=== PATIENT | female | born 1985 | race African-American/Black ===

== ENCOUNTER 2023-12-05 17:48 | Emergency (ER) | payer MEDICARE, OTHER, SELFPAY ==
--- NOTE | 2023-12-05 18:16 | ED.GENMED ---
History of Present Illness
<Yamini Beck PA-C - Last Filed: 12/05/23 23:29>
General
Chief Complaint: Psychiatric Problem
Source: patient
Exam Limitations: none
Time Seen by Provider: 12/05/23 18:09
Nursing documentation reviewed up to this point in time: agreed with
History of Present Illness
History of Present Illness:
This is a 38-year-old female presenting emergency department today for medical clearance for psychiatric treatment. Patient has a history of major depressive disorder with features, PTSD, psychogenic seizures, current malformation, asthma. She
receives psychiatric care and sees a therapist associated with [facility]. Patient does have extensive psychiatric history of multiple inpatient stays. 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 Patient went to her crisis center on her
own accord to seek treatment by her recommendation of her therapist. According to crisis workers, patient was mumbling her words upon arrival but initially she did express on her own accord that she wanted further psychiatric care. However, some
things change and then she started refusing any treatment. She then went to use the bathroom and started cutting herself with a razor blade and was brought into her ER bed for urgent medical attention. Once her wounds were addressed, she then
transferred back to crisis center. Patient is currently nonverbal, will occasionally shake her head yes or no. When asked about chest pain, shortness of breath, abdominal pain, nausea, vomiting, fevers or chills, she seemed to shake her head no.
She did shake her head yes to having a mild headache.
Past History
<Yamini Beck PA-C - Last Filed: 12/05/23 23:29>
Past History
ED Past Medical History: Asthma, GERD, Psychiatric (Posttraumatic syndrome, self mutilation, borderline personality, dissociative identity, suicide, depression) and Other (Pseudotumor cerebri)
ED Past Surgical History: Cholecystectomy, Gynecological (Ectopic with removal of tube and ovary November 2008 ), Tonsilectomy and Other (Dental surgery, gastric bypass)
Social History
Tobacco: Smoker
Alcohol: None
Drug: None
Personal: Single
Living: other (intermediate - behavioral health)
Employment: Not employed
Family History
Family History: Other (n/c); Negative Diabetes, Hypertension, Early CAD or CAD
Review of Systems
<Yamini Beck PA-C - Last Filed: 12/05/23 23:29>
Review of Systems
All Other Systems: ROS reviewed and negative except as documented in HPI and ROS
Phy Exam
<Yamini Beck PA-C - Last Filed: 12/05/23 23:29>
Physical Exam
Physical Exam:
General: Patient appears fearful and suspicious of medical staff. Patient however does not appear acutely ill and is nontoxic-appearing.
Skin: There are multiple scars on her bilateral arms. Her left forearm demonstrates scattered excoriations and various very superficial lacerations.
Head: Normocephalic, atraumatic
Eyes: Sclera non-icteric. EOMs intact. PERRLA.
Cardiac: Regular rate
Peripheral Vascular: No extremity swelling or edema
Pulm: Normal respiratory effort
Abdomen: No abdominal tenderness
Neuro: CN II-XII intact, no focal neurologic deficits.
Psychiatric: Patient is easily agitated. Patient appears disheveled, restless, unkempt. Patient will not answer questions and will only occasionally shake her head yes or no. Patient seems to be especially fearful of male providers. On first
assessment patient observed to be actively trying to harm herself, did not ever seem to attempt to harm others.
Course
<Yamini Beck PA-C - Last Filed: 12/05/23 23:29>
Orders/Labs/Results
Orders:
Orders
12/05/23 18:39
Urine Drug Abuse Screen Urgent
Date Specimen was Collected: 12/05/23
Time Specimen was Collected: 18:40
12/05/23 18:40
Test Result ONCE
12/05/23 18:42
Alcohol Urgent
Beta Hcg Serum Qualitative Screen [HCG, Serum Qualitative Screen] Urgent
Complete Blood Count/No Diff Urgent
Comprehensive Metabolic Panel Urgent
Salicylate Urgent
12/05/23 18:45
Lorazepam [Ativan] 2 mg IM NOW STA
12/05/23 18:46
Lorazepam [Ativan] 2 mg .ROUTE .STK-MED ONE
12/05/23 18:49
Restraints - Violent As Directed
Restraint Type-: Locked-4 point/4 rails
Apply From (date): 12/05/23
Apply from (time): 18:49
Remove (date): 12/05/23
Remove (time): 22:49
12/05/23 18:50
Olanzapine [Zyprexa] 10 mg IM NOW STA
12/05/23 18:51
Sterile Water [Sterile Water For Injection] 10 ml .ROUTE .STK-MED ONE
12/06/23 06:24
PSYCHIATRY CONSULT Urgent
Consulting Provider: Elham Sosa
Was physician already notified: Yes
Reason for consult: psychosis
Abnormal Lab Results
12/05/23
18:42
RBC 3.41 L 10^6/uL
(4.20-5.40)
Hgb 9.1 L g/dL
(12.0-16.0)
Hct 28.8 L %
(37.0-47.0)
MCH 26.7 L pg
(27.0-31.0)
MCHC 31.6 L g/dL
(33.0-37.0)
RDW 15.3 H %
(11.5-14.5)
Salicylates < 1.0 L mg/dl
(2.0-20.0)
12/05/23 18:42
12/05/23 18:42
Vital Signs
Initial and Last Documented VS:
Initial Vital Signs
Temp Pulse Resp BP Pulse Ox
96.9 F L 92 18 99/74 100
12/05/23 18:27 12/05/23 18:27 12/05/23 18:27 12/05/23 18:27 12/05/23 18:27
Last Documented Vital Signs
Temp Pulse Resp BP Pulse Ox
96.9 F L 92 18 99/74 100
12/05/23 18:27 12/05/23 18:27 12/05/23 18:27 12/05/23 18:27 12/05/23 18:27
<Danyel Flores, DO - Last Filed: 12/05/23 20:09>
Orders/Labs/Results
Orders:
Orders
12/05/23 18:39
Urine Drug Abuse Screen Urgent
Date Specimen was Collected: 12/05/23
Time Specimen was Collected: 18:40
12/05/23 18:40
Test Result ONCE
12/05/23 18:42
Alcohol Urgent
Beta Hcg Serum Qualitative Screen [HCG, Serum Qualitative Screen] Urgent
Complete Blood Count/No Diff Urgent
Comprehensive Metabolic Panel Urgent
Salicylate Urgent
12/05/23 18:45
Lorazepam [Ativan] 2 mg IM NOW STA
12/05/23 18:46
Lorazepam [Ativan] 2 mg .ROUTE .STK-MED ONE
12/05/23 18:49
Restraints - Violent As Directed
Restraint Type-: Locked-4 point/4 rails
Apply From (date): 12/05/23
Apply from (time): 18:49
Remove (date): 12/05/23
Remove (time): 22:49
06/21/24 18:50
Olanzapine [Zyprexa] 10 mg IM NOW STA
12/05/23 18:51
Sterile Water [Sterile Water For Injection] 10 ml .ROUTE .STK-MED ONE
12/06/23 06:24
PSYCHIATRY CONSULT Urgent
Consulting Provider: Elham Sosa
Was physician already notified: Yes
Reason for consult: psychosis
Abnormal Lab Results
12/05/23
18:42
RBC 3.41 L 10^6/uL
(4.20-5.40)
Hgb 9.1 L g/dL
(12.0-16.0)
Hct 28.8 L %
(37.0-47.0)
MCH 26.7 L pg
(27.0-31.0)
MCHC 31.6 L g/dL
(33.0-37.0)
RDW 15.3 H %
(11.5-14.5)
Salicylates < 1.0 L mg/dl
(2.0-20.0)
12/05/23 18:42
12/05/23 18:42
Vital Signs
Initial and Last Documented VS:
Initial Vital Signs
Temp Pulse Resp BP Pulse Ox
96.9 F L 92 18 99/74 100
12/05/23 18:27 12/05/23 18:27 12/05/23 18:27 12/05/23 18:27 12/05/23 18:27
Last Documented Vital Signs
Temp Pulse Resp BP Pulse Ox
96.9 F L 92 18 99/74 100
12/05/23 18:27 12/05/23 18:27 12/05/23 18:27 12/05/23 18:27 12/05/23 18:27
<Kulwinder Hawkins MD - Last Filed: 12/06/23 06:32>
Orders/Labs/Results
Orders:
Orders
12/05/23 18:39
Urine Drug Abuse Screen Urgent
Date Specimen was Collected: 12/05/23
Time Specimen was Collected: 18:40
12/05/23 18:40
Test Result ONCE
12/05/23 18:42
Alcohol Urgent
Beta Hcg Serum Qualitative Screen [HCG, Serum Qualitative Screen] Urgent
Complete Blood Count/No Diff Urgent
Comprehensive Metabolic Panel Urgent
Salicylate Urgent
12/05/23 18:45
Lorazepam [Ativan] 2 mg IM NOW STA
12/05/23 18:46
Lorazepam [Ativan] 2 mg .ROUTE .STK-MED ONE
12/05/23 18:49
Restraints - Violent As Directed
Restraint Type-: Locked-4 point/4 rails
Apply From (date): 12/05/23
Apply from (time): 18:49
Remove (date): 12/05/23
Remove (time): 22:49
12/05/23 18:50
Olanzapine [Zyprexa] 10 mg IM NOW STA
12/05/23 18:51
Sterile Water [Sterile Water For Injection] 10 ml .ROUTE .STK-MED ONE
12/06/23 06:24
PSYCHIATRY CONSULT Urgent
Consulting Provider: Elham Sosa
Was physician already notified: Yes
Reason for consult: psychosis
Abnormal Lab Results
12/05/23
18:42
RBC 3.41 L 10^6/uL
(4.20-5.40)
Hgb 9.1 L g/dL
(12.0-16.0)
Hct 28.8 L %
(37.0-47.0)
MCH 26.7 L pg
(27.0-31.0)
MCHC 31.6 L g/dL
(33.0-37.0)
RDW 15.3 H %
(11.5-14.5)
Salicylates < 1.0 L mg/dl
(2.0-20.0)
12/05/23 18:42
12/05/23 18:42
Vital Signs
Initial and Last Documented VS:
Initial Vital Signs
Temp Pulse Resp BP Pulse Ox
96.9 F L 92 18 99/74 100
12/05/23 18:27 12/05/23 18:27 12/05/23 18:27 12/05/23 18:27 12/05/23 18:27
Last Documented Vital Signs
Temp Pulse Resp BP Pulse Ox
96.9 F L 92 18 99/74 100
12/05/23 18:27 12/05/23 18:27 12/05/23 18:27 12/05/23 18:27 12/05/23 18:27
<Yamini Beck PA-C - Last Filed: 12/05/23 23:29>
MDM/Problems Addressed
Differential Diagnosis Includes:
ddx include acute psychosis, major depressive disorder with psychotic features, schizophrenia, schizophrenoform disorder
MDM/Problems Addressed:
Psychosis:
This is a 38-year-old female presenting emergency department today for medical clearance for psychiatric treatment. Patient has a history of major depressive disorder with features, PTSD, psychogenic seizures, current malformation, asthma. She
receives psychiatric care and sees a therapist associated with [facility]. Patient has extensive history of previous hospitalizations for psychiatric issues. Patient had episode here and went to evaluate crisis in her bathroom where
she cut herself with a razor blade. Her wounds were dressed, bleeding controlled, wounds not amenable to suturing or repair with glue. Telepsych eval pending. Considering patient extensive self-harm, and acute, patient will be evaluated for
potential inpatient admission. Patient does not seem to have any medical concerns at this time and her vitals are stable.
Patient is medically stable for inpatient psychiatric care.
Chronic conditions affecting care:
Psychogenic seizures, suicidal ideation, major depressive disorder with psychotic features, asthma, chiari malformation
Acute Exacerbation and/or Progression of Chronic Illness:
Psychogenic seizures, suicidal ideation, major depressive disorder with psychotic features, asthma, chiari malformation
<Yamini Beck PA-C - Last Filed: 12/05/23 23:29>
*Pulse Oximetry
Patient hypoxic: no
*Critical Care Note
Total Time (30-74mins, 75-104mins- exclusive of procedures): Not Applicable
Data Reviewed
Review of Other/Old Records Reveals: Records (Reviewed previous ER physician documentation, patient has a psychiatric history documented here, previously visited emergency department for concerns of depression, and multiple instances of self-harm
suicidal ideation)
Source: patient and records
<Yamini Beck PA-C - Last Filed: 12/05/23 23:29>
Patient Management
Escalation/DeEscalation of care consider admission/obs:
Psychiatric eval pending, patient's [facility] team petititoned, [address] Elena.
Patient is medically stable for inpatient psychiatric care.
<Yamini Beck PA-C - Last Filed: 12/05/23 23:29>
Update Note
Update Note:
My attending and I were called into the room by nursing regarding the patient who had extensive bleeding following self injury. Patient was originally seen by [facility] and came in for treatment however, she went to the bathroom and she
started cutting herself with a razor and was subsequently brought into one of our ER beds for evaluation of her wounds. Her left forearm reveals multiple superficial abrasions that are actively bleeding. Bleeding was well-controlled after thorough
irrigation with saline and resolved on its own within a few minutes. No deep lacerations requiring sutures. Wound was dressed and pressure dressing applied.
When patient was brought back to her crisis room, patient started scratching herself deeply all over her body, and would not stop. I was called and to the room by nursing he was requesting psychiatric medication urgently as patient was harming
herself extensively. Patient was subsequently given 2 mg of Ativan IM and 10 mg of Zyprexa IM. Please also request for restraints to be present as patient continues to call out herself however, patient started to become more calm and restraints
were not required.
<Kulwinder Hawkins MD - Last Filed: 12/06/23 06:32>
Update Note
Update Note:
My attending and I were called into the room by nursing regarding the patient who had extensive bleeding following self injury. Patient was originally seen by [facility] and came in for treatment however, she went to the bathroom and she
started cutting herself with a razor and was subsequently brought into one of our ER beds for evaluation of her wounds. Her left forearm reveals multiple superficial abrasions that are actively bleeding. Bleeding was well-controlled after thorough
irrigation with saline and resolved on its own within a few minutes. No deep lacerations requiring sutures. Wound was dressed and pressure dressing applied.
When patient was brought back to her crisis room, patient started scratching herself deeply all over her body, and would not stop. I was called and to the room by nursing he was requesting psychiatric medication urgently as patient was harming
herself extensively. Patient was subsequently given 2 mg of Ativan IM and 10 mg of Zyprexa IM. Please also request for restraints to be present as patient continues to call out herself however, patient started to become more calm and restraints
were not required.
12/06/23 @ 6:30 am : pt remains sedated from medications given overnight, but arousable. Pt unable to be evaluated by tele-psych due to sedation. Awaiting evaluation by psychiatry in AM.
ED Attending Note
<Yamini Beck PA-C - Last Filed: 12/05/23 23:29>
-
Portions of this chart may have been created with voice recognition software.� Occasional wrong word or��sound alike� substitutions may have occurred due to the inherent limitations of voice recognition software.
<Danyel Flores, DO - Last Filed: 12/05/23 20:09>
ED Attending Note
Patient seen and examined by attending physician: Yes
I performed the substantive portion of visit, reviewed & personally made and approve the management plan that is documented in note by myself or SY.: Yes
I performed a history and physical exam of patient and discussed management with resident, I reviewed resident's note and agree with documented findings and plan of care.: Yes
ED Attending Note:
I evaluated patient. The patient appears to be experiencing psychosis. She would initially not let me get near her and had rather bizarre behavior. At times she would stay curled up in the back corner of the room. She was given Zyprexa and
Ativan. Telepsych eval pending.
Discharge Plan
Departure
Prescriptions:
No Action
prazosin 2 MG capsule
2 mg PO HS
albuterol sulfate [Ventolin HFA] 90 MCG/PUFF HFA aerosol inhaler
2 puff inhalation R Q6 PRN (Reason: sob/wheezing)
clonazepam 1 MG tablet
1 mg PO DAILY PRN (Reason: anxiety/aggitation)
Patient Comments:
01/30/2023: last filled 01/14/23, 30 tabs for 30 days from [facility]
fluoxetine 40 mg capsule
40 mg PO DAILY
sennosides [senna] 8.6 mg tablet
8.6 mg PO BID
clonidine HCl 0.1 mg tablet
0.1 mg PO HS
benztropine 0.5 mg tablet
0.5 mg PO BID
cyproheptadine 4 mg tablet
4 mg PO HS
pantoprazole 40 mg tablet,delayed release (DR/EC)
40 mg PO BID
gabapentin 100 mg capsule
200 mg PO TID
fluticasone propionate 50 mcg/actuation spray,suspension
2 spray INTRANASAL DAILY
hydroxyzine pamoate 25 mg capsule
25 mg PO BID PRN (Reason: anxiety)
duloxetine 30 mg capsule,delayed release(DR/EC)
30 mg PO DAILY
Vraylar 4.5 mg capsule
4.5 mg PO DAILY
docusate sodium 100 MG capsule
100 mg PO DAILY
acetaminophen 325 mg Tablet
650 mg PO Q4HPRN PRN (Reason: pain) Qty: 30 0RF
ibuprofen [Motrin IB] 200 mg tablet
400 mg PO TID PRN (Reason: moderate pain) Qty: 20 0RF
Rx Instructions:
take with food only. Do not take for more than 5 days
topiramate 100 mg tablet
100 mg PO Q12H Qty: 0 0RF
Referrals:
NONE,* [Family Provider] -
Interventions
Interventions:
*Risk Screen - Suicide Last Done: 12/05/23 18:42
*General Assessment Last Done: 12/05/23 18:27
*Neglect/Abuse Screening Last Done: 12/05/23 18:42
ED- Fall Risk Assessment Last Done: 12/05/23 19:07
*ED COVID-19 Vaccine History Last Done: 12/05/23 18:27
ED-Psychological Assessment Last Done: 12/05/23 19:07
Discharge Date and Time
Print Language: SYRIAN
[2023-12-05 18:27] VITALS: BP 99/74
[2023-12-05 18:48] LABS: Hematocrit 28.8 % (37.0-47.0); Hemoglobin 9.1 g/dL (12.0-16.0); Mean Corp Hgb Conc. 31.6 g/dL (33.0-37.0); Mean Corpuscular Hgb 26.7 pg (27.0-31.0); Mean Corpuscular Volume 84.5 fL (81.0-99.0); Mean Platelet Volume 9.3 fL (7.4-10.4); Platelet Count 359 10^3/uL (130-400); Red Blood Cell Count 3.41 10^6/uL (4.20-5.40); Red Cell Dist. Width 15.3 % (11.5-14.5); White Blood Cell Count 5.9 10^3/uL (4.8-10.8)
[2023-12-05] MEDS: ZYPREXA 10 MG IM (18:54)
[2023-12-05] MEDS: ATIVAN 2 MG IM (18:54)
[2023-12-05 19:01] LABS: HCG, Serum Qualitative Screen Negative
[2023-12-05 19:05] LABS: ALT (SGPT) 18 U/L (0-35); AST (SGOT) 25 U/L (14-36); Albumin 3.7 g/dl (3.5-5.0); Alcohol None Detected; Alkaline Phosphatase 68 U/L (38-126); Blood Urea Nitrogen 9 mg/dl (7-17); Calcium 9.3 mg/dl (8.4-10.2); Carbon Dioxide 26 mmol/L (22-30); Chloride 107 mmol/L (98-107); Glucose 89 mg/dl (70-99); Potassium 4.2 mmol/L (3.5-5.1); Salicylate < 1.0 mg/dl (2.0-20.0); Sodium 138 mmol/L (135-145); Total Bilirubin 0.3 mg/dl (0.2-1.3); Total Protein 6.6 g/dl (6.3-8.2); eGFR > 60.00
[2023-12-05 19:07] VITALS: BMI 43.2
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
[2023-12-06 09:12] VITALS: BP 145/91
[2023-12-06 09:36] LABS: COVID-19 Antigen Negative (Negative)
--- NOTE | 2023-12-06 10:32 | CS.PSYCHR ---
Consult Summary - Psychiatry
-
38 yo female with extensive mental health history as noted below presents on a 302 after cutting herself with a razor blade in the crisis bathroom. She received olanzapine 10mg IM an Ativan 2mg IM for agitation yesterday. At this time she is sitting
up and eating breakfast. She is mumbling and difficult to understand. She state she has been compliant with her psych medications at home.
MSE- disheveled. poor eye contact, obese. mumbling impoverished speech, very difficult to understand. unable to assess full MSE due to this. calm at this time but high risk for recurrence of agitation.
Past psych- mental health treatment at [facility]. multiple inpatient psych admissions. diagnoses include MDD, BPD, PTSD, psychogenic seizures
Social- lives alone
PMH- obesity, asthma, GERD, pseudotumor cerebri
A/P- 38 yo female with past psych history as noted above on a 302 awaiting inpatient placement for safety, stabilization and medications management. Will give Klonopin 1mg and neurontin 200mg now (these are two of her home medications). will hold
off on others for now. continue 1:1 for safety. Crisis pursuing placement.
[2023-12-06] MEDS: NEURONTIN 200 MG PO (10:37)
[2023-12-06] MEDS: KLONOPIN 1 MG PO (10:38)
[2023-12-06] MEDS: ATIVAN 2 MG IM ×2 (12:46→14:03)
[2023-12-06] MEDS: ZYPREXA 10 MG IM (12:48)
[2023-12-06] MEDS: ATIVAN 1 MG PO (13:20)
--- NOTE | 2023-12-06 14:30 | EDRN ---
Patient to be transferred to [facility] via EMS by [facility] ETA 1230. Patient became agitated, verbally aggressive and barricaded self in bathroom. Security, production inspector and Dr. Hawkins notified. CPI techniques applied, deescalation attempts made,
emotional support and therapeutic communication provided, unsuccessful. Patient observed attempting to remove toilet seat while verbally threatening to harm staff. Patient repeatedly stating 'Bring it on'. Orders obtained to for IM ativan and
zyprexa. Patient continues with escalation, shouting, 'I'm not going to be a fucking test subject' 'If you come near me with that needle, I'm going to jab it into one of you' 'If my head gets hurt, I will carmen you all' Security called [place]
[facility] for assistance. Patient continued with further escalation and threats. Patient states 'Good bring the police, I will take their gun and shoot myself'. After police arrived patient ambulated self into room and sat on the floor.
patient refusing to sit or lay on stretcher. After police conversed with patient, patient agreeable to take PO medications. Dr. Hawkins ordered 2mg PO ativan. Patient provided 2-1mg tablets of ativan. Patient took one tablet and refused the second. "Madonna"Shruthi notified. Instructed to administer IM ativan and zyprexa as ordered. With assist of police and security, patient physically restrained and IM medication administered. Patient aggressive, swinging arms, kicking legs and spitting at staff and
police. Patient took blanket and tied around neck in attempts to strangle self. Patient observed aggressively scratching lacerations to abdomen and arms. With maximum assistance, patient assisted to EMS stretcher, restraints and mitts applied.
Patient observed thrashing body on stretcher and attempting to remove restraints. Dr. Hawkins notified, reassessed patient and ordered 2mg ativan IM. Patient left department via EMS with all belongings. Crisis department provided report to [facility].
--- NOTE | 2023-12-06 16:19 | EDRN ---
Addendum: Prior to discharge, patient broke took while bitting wrist restraints and mitts in attempts to remove them. Tooth placed in biohazard bag and given to EMS.
== END 2023-12-06 14:30 ==
LOC: EMR 17:48
PROVIDERS: Emergency Medicine; CONSULT PHYSICIAN Psychiatry & Neurology Psychiatry; EMERGENCY PHYSICIAN Emergency Medicine
DX: R51.9 Headache, unspecified (principal); J45.909 Unspecified asthma, uncomplicated; K21.9 Gastro-esophageal reflux disease without esophagitis; F60.3 Borderline personality disorder; F44.81 Dissociative identity disorder; F43.10 Post-traumatic stress disorder, unspecified; R45.851 Suicidal ideations; F32.A Depression, unspecified; F17.200 Nicotine dependence, unspecified, uncomplicated; Z82.49 Family history of ischemic heart disease and other diseases of the circulatory system; Z90.49 Acquired absence of other specified parts of digestive tract; Z90.721 Acquired absence of ovaries, unilateral; Z91.52 Personal history of nonsuicidal self-harm; Z98.84 Bariatric surgery status
CPT/HCPCS: 99283; 80053; 80179; 82077; 84703; 85027; 87811; J2358

== ENCOUNTER 2023-12-06 16:14 | Emergency (ER) | payer MEDICARE, OTHER, SELFPAY ==
[2023-12-06 17:20] VITALS: BP 136/96
--- NOTE | 2023-12-06 17:55 | ED.GENMED ---
History of Present Illness
General
Chief Complaint: Crisis Evaluation
Source: records and other (crisis)
Exam Limitations: none
Time Seen by Provider: 12/06/23 16:26
Nursing documentation reviewed up to this point in time: agreed with
History of Present Illness
History of Present Illness:
Patient was seen in Crisis and ED on 12/04. Cleared medically in ED for inpatient psychiatric care. She was accepted at [facility] but became increasing agitated and agressive during transfer. She was returned back to ED, eclectic not able taccept
due to level of aggression. She is currently being held in ED until she is successfully placed elsewhere. CUrrently she is awake and alert, in no distress. Medical clearance was completed 12/04.
Past History
Past History
ED Past Medical History: Asthma, GERD, Psychiatric (Posttraumatic syndrome, self mutilation, borderline personality, dissociative identity, suicide, depression) and Other (Pseudotumor cerebri)
ED Past Surgical History: Cholecystectomy, Gynecological (Ectopic with removal of tube and ovary November 2008 ), Tonsilectomy and Other (Dental surgery, gastric bypass)
Social History
Tobacco: Smoker
Alcohol: None
Drug: None
Personal: Single
Living: other ([facility])
Employment: Not employed
Family History
Family History: Other (n/c); Negative Diabetes, Hypertension, Early CAD or CAD
Review of Systems
Review of Systems
Allergies reviewed?: Yes
All Other Systems: ROS reviewed and negative except as documented in HPI and ROS
Constitutional: Reports no symptoms
EENT: Reports no symptoms
Respiratory: Reports no symptoms
Cardiac: Reports no symptoms
ABD/GI: Reports no symptoms
: Reports no symptoms
Musculoskeletal: Reports no symptoms
Skin: Reports no symptoms
Neurological: Reports no symptoms
Psychiatric: Reports depression, anxiety and suicidal
Phy Exam
General Physical Exam
General Presentation: well appearing and no apparent distress
General age: appears stated age
General Skin: warm and dry
General Habitus: normal
General Mental: alert
General Hydration: appears well hydrated
Musculoskeletal Exam
Musculoskeletal Exam: full ROM and neuro vasc intact
Skin Exam
Skin Exam: normal color and warm/dry
Psychiatric Exam
Psychiatric Exam: normal mood/affect
Course
Orders/Labs/Results
Orders:
Orders
12/06/23 20:00
Topiramate [Topamax] 100 mg PO BID
12/06/23 22:00
Clonidine [Catapres] 0.1 mg PO HS
Trazodone [Desyrel] 50 mg PO HS
12/06/23 22:02
Olanzapine [Zyprexa] 15 mg PO HS
12/06/23 23:29
PSYCHIATRY CONSULT Urgent
Consulting Provider: Elham Sosa
Was physician already notified: Yes
12/06/23 23:30
Crisis Consult Urgent
Reason for Consult: inpatient Psychiatric Care
12/07/23 03:21
Asenapine Sublingual [Saphris] 10 mg .ROUTE .STK-MED ONE
12/07/23 03:22
Asenapine Sublingual [Saphris] 10 mg SL NOW STA
12/07/23 08:00
Fluoxetine HCl [Prozac] 60 mg PO DAILY
12/07/23 10:28
Clonazepam [Klonopin] 1 mg PO DAILY PRN
12/07/23 11:00
Fluoxetine HCl [Prozac] 60 mg PO DAILY
Topiramate [Topamax] 100 mg PO BID
12/07/23 22:00
Clonidine [Catapres] 0.1 mg PO HS
Olanzapine [Zyprexa] 10 mg PO HS
Trazodone [Desyrel] 50 mg PO HS
Vital Signs
Initial and Last Documented VS:
Initial Vital Signs
Temp Pulse Resp BP Pulse Ox
98.3 F 94 16 136/96 100
12/06/23 17:20 12/06/23 17:20 12/06/23 17:20 12/06/23 17:20 12/06/23 17:20
Last Documented Vital Signs
Temp Pulse Resp BP Pulse Ox
98.6 F 88 19 105/71 99
12/07/23 12:00 12/07/23 12:00 12/07/23 12:00 12/07/23 12:00 12/07/23 12:00
*Critical Care Note
Total Time (30-74mins, 75-104mins- exclusive of procedures): Not Applicable
Update Note
Update Note:
Patient remains awake and alert, cooperative. Will continue to hold in crisis room. Psychiatry will evaluate in AM
ED Attending Note
-
Portions of this chart may have been created with voice recognition software.� Occasional wrong word or��sound alike� substitutions may have occurred due to the inherent limitations of voice recognition software.
Discharge Plan
Departure
Patient Disposition: Psych Facility
Patient with high blood pressure during this ER visit?: No
Discharge Problem:
Medical clearance for psychiatric admission
Prescriptions:
No Action
clonidine HCl 0.1 mg Tablet
0.1 mg PO HS
benztropine 0.5 mg Tablet
0.5 mg PO BID
trazodone 50 mg Tablet
50 mg PO HS
olanzapine 15 mg Tablet
15 mg PO HS
topiramate 100 mg tablet
100 mg PO BID
fluoxetine [Prozac] 20 mg Capsule
60 mg PO DAILY
hydroxyzine pamoate 25 mg capsule
25 mg PO BID
Vraylar 4.5 mg Capsule
4.5 mg PO DAILY
Referrals:
UNKNOWN - PT NOT,INTERVIEWE [Family Provider] -
Interventions
Interventions:
*Risk Screen - Suicide Last Done: 12/06/23 17:21
*General Assessment Last Done: 12/06/23 17:25
*Neglect/Abuse Screening Last Done: 12/06/23 17:25
ED- Fall Risk Assessment Last Done: 12/07/23 13:19
*ED COVID-19 Vaccine History Last Done: 12/06/23 17:25
*Nursing Disposition Last Done: 12/07/23 13:19
ED-Psychological Assessment Last Done: 12/07/23 12:00
Discharge Date and Time
Discharge Date/Time: 12/07/23 13:20
Print Language: COOK ISLANDER
[2023-12-06] MEDS: TOPAMAX 100 MG PO (22:08)
[2023-12-06] MEDS: DESYREL 50 MG PO (22:08)
[2023-12-06] MEDS: CATAPRES 0.100000000000000006 MG PO (22:11)
[2023-12-07] MEDS: SAPHRIS 10 MG SL (03:23)
[2023-12-07 10:08] VITALS: BP 139/78
--- NOTE | 2023-12-07 10:36 | W.PN.UPDATE ---
Update Note
Progress Note Update
Patient was transferred to [place] yesterday on a 302 but sent back to crisis secondary to concern that she had been in restraints. Yesterday patient had become very agitated and required IM Ativan/Zyprexa and physical restraint for safety. She
did sleep through the night here. Today she is calm and waiting for breakfast. She states she does not want to go to [facility] or [place]. Reviewed that she is a 302 and that crisis is pursuing placement options and that where she goes depends on
multiple factors which we cannot control. I explained that I will restart some of her home medications while she is here.
MSE- Awake, cooperating right now but easily agitated when told anything she does not want to hear. Poor eye contact. Still mumbled speech but easier to understand. Irritable mood. Labile affect.Poverty of thought. Denies active SI but has self
harmed here with cutting/scratching. Denies AVH. Poor insight. Impaired judgement.
A/P- 38 yo female with history of depression, PTSD, borderline PD. continue efforts at inpatient placement on 302. Restart the following home medications: olanzapine 10mg HS, prozac 60mg daily, trazodone 50mg HS, topamax 100mg BID, clonidine 0.1mg
HS, klonopin 1mg daily PRN anxiety. Hold cogentin and vraylar for now. Continue 1:1 for safety.
[2023-12-07] MEDS: TOPAMAX PO (10:55)
[2023-12-07] MEDS: PROZAC 60 MG PO (11:44)
[2023-12-07] MEDS: TOPAMAX 100 MG PO (11:45)
[2023-12-07 12:00] VITALS: BP 105/71
--- NOTE | 2023-12-07 13:08 | PTCARENOTE ---
Spoke to crisis. Pt is getting picked up at 1300 to be transferred to [place]. Pt is aware and is cooperating. RN in room to talk to pt. Pt states she knows she's going to [place] and will get on the stretcher without difficulty. RN gave pt
a new pair of paper scrubs to change in to. RN obtained Lunch tray from cafeteria and gave to pt to eat prior to leaving. Security brought pt belongings to room at time of departure. Pt got on stretcher without trouble. Pt remains calm and
cooperative. Pt left with Acute Care on stretcher without any restraints in place.
== END 2023-12-07 13:20 ==
LOC: EMR 16:14
PROVIDERS: CONSULT PHYSICIAN Psychiatry & Neurology Psychiatry; EMERGENCY PHYSICIAN Emergency Medicine
DX: Z02.79 Encounter for issue of other medical certificate (principal); R45.1 Restlessness and agitation; J45.909 Unspecified asthma, uncomplicated; K21.9 Gastro-esophageal reflux disease without esophagitis; G93.2 Benign intracranial hypertension; F60.3 Borderline personality disorder; R01.1 Cardiac murmur, unspecified; F50.2 Bulimia nervosa; F41.9 Anxiety disorder, unspecified; F32.A Depression, unspecified; F25.9 Schizoaffective disorder, unspecified; R56.9 Unspecified convulsions; F17.200 Nicotine dependence, unspecified, uncomplicated; Z91.51 Personal history of suicidal behavior; Z90.49 Acquired absence of other specified parts of digestive tract; Z98.84 Bariatric surgery status
CPT/HCPCS: 99283

== ENCOUNTER 2024-03-29 12:39 | Emergency (ER) | payer OTHER, SELFPAY ==
[2024-03-29 12:43] VITALS: BP 141/101
--- NOTE | 2024-03-29 13:20 | ED.GENMED ---
History of Present Illness
General
Chief Complaint: Crisis Evaluation
Source: patient and other (olivia Garcia from [facility] [phone])
Exam Limitations: none
Time Seen by Provider: 03/29/24 12:58
History of Present Illness
History of Present Illness:
Patient is a 38-year-old female with past medical history of seizure disorder, pseudoaneurysm, GERD, asthma, eating disorder, schizoaffective disorder, who presents to the emergency department accompanied by her therapist from the [facility] for
medical clearance to possibly go to a psychiatric facility. Patient reports that she has not been eating or drinking and has been overusing laxatives including Dulcolax and MiraLAX. She reports that she is having frequent watery bowel movements.
Patient is unsure that has been blood in her stool as she does not check. Patient reports that she is feeling extremely weak and fatigued. She reports that her bones hurt. Patient also notes some chills and feeling cold. Patient endorses some
nasal congestion and rhinorrhea. Patient also reports some mild throat pain. Patient reports a cough which is occasionally productive of mucus. Patient endorses intermittent chest pain and shortness of breath. Patient also notes intermittent
abdominal pain. Patient denies nausea or vomiting. Patient denies thoughts of hurting herself or anyone else. Patient states that she is interested in going to a psychiatric facility for evaluation and treatment.
Past History
Past History
ED Past Medical History: Asthma, GERD, Psychiatric (Posttraumatic syndrome, self mutilation, borderline personality, dissociative identity, suicide, depression) and Other (Pseudotumor cerebri)
ED Past Surgical History: Cholecystectomy, Gynecological (Ectopic with removal of tube and ovary November 2008 ), Tonsilectomy and Other (Dental surgery, gastric bypass)
Social History
Tobacco: Smoker
Alcohol: None
Drug: None
Personal: Single
Living: other ([facility])
Employment: Not employed
Family History
Family History: Other (n/c); Negative Diabetes, Hypertension, Early CAD or CAD
Review of Systems
Review of Systems
Allergies reviewed?: Yes
All Other Systems: ROS reviewed and negative except as documented in HPI and ROS
Constitutional: Reports fatigue and chills; Denies fever
EENT: Reports sore throat and runny nose
Respiratory: Reports cough and trouble breathing
Cardiac: Reports chest pain
ABD/GI: Reports abdominal pain, diarrhea and anorexia; Denies nausea or vomiting
: Reports no symptoms; Denies dysuria, frequency or dark urine
Musculoskeletal: Reports joint pain
Skin: Reports no symptoms
Neurological: Reports no symptoms
Endocrine: Reports no symptoms
Hematologic/Lymphatic: Reports no symptoms
Psychiatric: Denies suicidal
Phy Exam
General Physical Exam
General Presentation: well appearing, no apparent distress and other (has multiple suitcases with her)
General Skin: warm and dry
General Habitus: normal
General Mental: alert
General Hydration: appears well hydrated
ENT Exam
ENT Exam: EOMI, pharynx normal, neck supple, normocephalic and swallowing well
Eye Exam
Eye Exam: PERRL, cornea clear and conjunctiva normal
Cardiovascular Exam
Cardiovascular Exam: regular rate/rhythm, no edema, no murmur and normal peripheral pulses
Pulmonary Exam
Pulmonary Exam: lungs clear, no respiratory distress, no rales, no crackles, no rhonchi, no stridor, no wheezing and no cough
Gastrointestinal Exam
Gastrointestinal Exam: normal bowel sounds, soft, no organomegaly, no pulsatile mass, non distended and tender (mild suprapubic and LLQ)
Neurological Exam
Neurological Exam: alert, oriented x3, no motor deficits and speech normal
Musculoskeletal Exam
Musculoskeletal Exam: full ROM, no edema and back tenderness (diffuse, no CVA tenderness)
Skin Exam
Skin Exam: normal color, warm/dry, no rash and no petechia
Psychiatric Exam
Psychiatric Exam: anxious
Course
Orders/Labs/Results
Orders:
Orders
03/29/24 13:14
Electrocardiogram (*1) Stat
Reason for Study: Chest Pain
EKG- Treatment ONCE
03/29/24 13:15
CR Chest - 2 Views Urgent
Comment:
Reason For Exam: cough
03/29/24 13:17
Crisis Consult Urgent
Reason for Consult: possible 201
03/29/24 13:39
COVID-19 Antigen Urgent
Source: Nasal Swab
Complete Blood Count/With Diff Urgent
Comprehensive Metabolic Panel Urgent
Fentanyl, Urine Urgent
Urinalysis Reflex To Culture Urgent
Date Specimen was Collected: 03/29/24
Time Specimen was Collected: 13:37
Urine Drug Abuse Screen Urgent
Date Specimen was Collected: 03/29/24
Time Specimen was Collected: 13:37
Urine Microscopic Reflex Cult Urgent
Abnormal Lab Results
03/29/24
13:39
WBC 4.1 L 10^3/uL
(4.8-10.8)
RBC 3.65 L 10^6/uL
(4.20-5.40)
Hgb 9.3 L g/dL
(12.0-16.0)
Hct 29.4 L %
(37.0-47.0)
MCV 80.5 L fL
(81.0-99.0)
MCH 25.5 L pg
(27.0-31.0)
MCHC 31.6 L g/dL
(33.0-37.0)
RDW 17.5 H %
(11.5-14.5)
Chloride 109 H mmol/L
(98-107)
Urine Ketones Trace A
(Negative)
Ur Occult Blood Reflex 3+ A
(Negative)
Urine RBC 3-6 A /HPF
(0-2)
Urine Bacteria (Reflex) Few A
(Negative)
U Benzodiazepines Scrn Positive H
(Negative)
U Marijuana (THC) Screen Positive H
(Negative)
03/29/24 13:39
03/29/24 13:39
Vital Signs
Initial and Last Documented VS:
Initial Vital Signs
Temp Pulse Resp BP Pulse Ox
99.3 F 62 18 141/101 100
03/29/24 12:43 03/29/24 12:43 03/29/24 12:43 03/29/24 12:43 03/29/24 12:43
Last Documented Vital Signs
Temp Pulse Resp BP Pulse Ox
99.3 F 48 16 141/101 100
03/29/24 12:43 03/29/24 14:30 03/29/24 14:30 03/29/24 12:43 03/29/24 12:43
*EKG
Interpreted by ED Provider?: Yes
EKG Intrepretation Date: 03/29/24
EKG Intrepretation Time: 13:31
Interpretation: abnormal
Comparison EKG: no changes
Heart Rate: 46
Rate: bradycardiac
Rhythm: sinus
[place]: normal axis
Interval: normal interval
QRS Pattern: normal QRS
Ischemia: T-wave inversion (leads V1, V2)
*Critical Care Note
Total Time (30-74mins, 75-104mins- exclusive of procedures): Not Applicable
Update Note
Update Note:
38-year-old female with past medical history as noted including psychiatric diagnoses of eating disorder and schizoaffective disorder brought to the emergency department by her therapist as she is interested in voluntary inpatient psychiatric
placement. Patient admits that she has been abusing laxatives recently and has had very little p.o. intake. Patient endorses multiple physical complaints including chills, rhinorrhea, nasal congestion, throat pain, cough, chest pain, shortness of
breath, abdominal pain, diarrhea. On arrival, patient is moderately hypertensive, afebrile. On exam, patient is in no acute distress, she has moist mucous membranes, her lungs are clear to auscultation bilaterally, she has very mild suprapubic and
left lower quadrant tenderness to palpation. Will check urinalysis, labs, urine drug screen, EKG, chest x-ray, COVID swab given the patient's complaints. Will also request crisis consultation for possible placement if results are reassuring today.
EKG demonstrates no acute ischemic changes, no dysrhythmia, unchanged from prior. CXR demonstrates NAD. COVID-19 test is negative. Labs are non-actionable. Patient has remained stable for the entirety of her emergency department stay. Pt will
be discharged to [facility] so that crisis can evaluate the patient and likely place her. Patient aware of the plan and agrees.
ED Attending Note
-
Portions of this chart may have been created with voice recognition software.� Occasional wrong word or��sound alike� substitutions may have occurred due to the inherent limitations of voice recognition software.
Discharge Plan
Departure
Patient Disposition: [facility] Crisis
Date of Disposition: 03/29/24
Time of Disposition: 15:17
Patient with high blood pressure during this ER visit?: Yes
Consults for patient: Crisis
Condition: Good
Covid-19: Negative COVID-19
Discharge Problem:
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
Instructions: Eating Disorder, Acute Diarrhea
Prescriptions:
No Action
clonidine HCl 0.1 mg Tablet
0.1 mg PO HS
benztropine 0.5 mg Tablet
0.5 mg PO BID
trazodone 50 mg Tablet
50 mg PO HS
olanzapine 15 mg Tablet
15 mg PO HS
topiramate 100 mg tablet
100 mg PO BID
fluoxetine [Prozac] 20 mg Capsule
60 mg PO DAILY
hydroxyzine pamoate 25 mg capsule
25 mg PO BID
Vraylar 4.5 mg Capsule
4.5 mg PO DAILY
Referrals:
PRIVATE,PHYSICIAN [Family Provider] -
Activity Restrictions/Additional Instructions:
You were seen in the emergency department for evaluation of diarrhea, along with other symptoms including fatigue, generalized weakness, runny nose, stuffy nose, throat pain, cough, chest, shortness of breath, and abdominal pain. While you were in
the emergency department, you had an EKG, chest x-ray, and blood work. No dangerous abnormalities were found. You were interested in pursuing inpatient psychiatric services and therefore are being discharged to our crisis department so that they
can further evaluate you. Please return to the emergency department if you pass out or feel like you are going to pass out, develop a fever greater than 100.4F, severe chest pain, difficulty breathing, severe abdominal pain, persistent vomiting, or
for any other worsening or concerning symptoms.
Interventions
Interventions:
*Risk Screen - Suicide Last Done: 03/29/24 12:43
*General Assessment Last Done: 03/29/24 12:43
*Neglect/Abuse Screening Last Done: 03/29/24 12:43
ED- Fall Risk Assessment Last Done: 03/29/24 13:46
*ED COVID-19 Vaccine History Last Done: 03/29/24 12:43
*Nursing Disposition Last Done: 03/29/24 15:29
ED-Psychological Assessment Last Done: 03/29/24 13:46
Discharge Date and Time
Print Language: EQUATORIAL GUINEAN
[2024-03-29 13:57] LABS: % Basophils 1.5 % (0-2); % Eosinophils 2.7 % (0-6); % Lymphocytes 37.9 % (20.5-51.1); % Monocytes 6.1 % (1.7-9.3); % Neutrophils 51.8 % (42.2-75.2); Absolute Basophils 0.1 10^3/uL (0-0.2); Absolute Eosinophils 0.1 10^3/uL (0-0.7); Absolute Lymphocytes 1.6 10^3/uL (1.2-3.4); Absolute Monocytes 0.3 10^3/uL (0.1-0.6); Absolute Neutrophils 2.1 10^3/uL (1.4-6.5); Hematocrit 29.4 % (37.0-47.0); Hemoglobin 9.3 g/dL (12.0-16.0); Mean Corp Hgb Conc. 31.6 g/dL (33.0-37.0); Mean Corpuscular Hgb 25.5 pg (27.0-31.0); Mean Corpuscular Volume 80.5 fL (81.0-99.0); Mean Platelet Volume 9.4 fL (7.4-10.4); Nucleated Red Blood Cells % 0 %; Platelet Count 369 10^3/uL (130-400); Red Blood Cell Count 3.65 10^6/uL (4.20-5.40); Red Cell Dist. Width 17.5 % (11.5-14.5); White Blood Cell Count 4.1 10^3/uL (4.8-10.8)
[2024-03-29 14:05] LABS: Urine Albumin Trace (Neg - Trace); Urine Bilirubin Negative (Negative); Urine Character Clear (Clear); Urine Color Yellow; Urine Glucose Negative (Negative); Urine Ketone Trace (Negative); Urine Leukocyte Negative (Negative); Urine Nitrite Negative (Negative); Urine Occult Blood 3+ (Negative); Urine Urobilinogen Negative (Neg - 1+)
[2024-03-29 14:10] LABS: ALT (SGPT) 15 U/L (0-35); AST (SGOT) 24 U/L (14-36); Albumin 4.1 g/dl (3.5-5.0); Alkaline Phosphatase 62 U/L (38-126); Blood Urea Nitrogen 8 mg/dl (7-17); Calcium 9.3 mg/dl (8.4-10.2); Carbon Dioxide 22 mmol/L (22-30); Chloride 109 mmol/L (98-107); Glucose 91 mg/dl (70-99); Potassium 3.8 mmol/L (3.5-5.1); Sodium 140 mmol/L (135-145); Total Bilirubin 0.3 mg/dl (0.2-1.3); Total Protein 6.9 g/dl (6.3-8.2); eGFR > 60.00
[2024-03-29 14:30] LABS: Urine Mucus Many; Urine Squamous Cell >30 /LPF (Few)
[2024-03-29 14:32] LABS: Urine Amorphous Seen; Urine White Cell 0-2 /HPF (0-5)
[2024-03-29 14:33] LABS: Urine Bacteria Few (Negative)
[2024-03-29 14:41] LABS: COVID-19 Antigen Negative (Negative)
[2024-03-29 14:50] LABS: Amphetamines Negative (Negative); Barbiturates Negative (Negative); Buprenorphine Negative (Negative); Cocaine Negative (Negative); Marijuana Positive (Negative); Methadone Negative (Negative); Methamphetamines Negative (Negative); Opiates Negative (Negative); Phencyclidine Negative (Negative); Tricyclic Antidepressants Negative (Negative)
[2024-03-29 14:51] LABS: Benzodiazepines Positive (Negative)
--- NOTE | 2024-03-29 17:04 | EDRN ---
Pt moved to [facility] crisis 1 to Crisis #2 at this time.
--- NOTE | 2024-03-29 17:23 | EDRN ---
This RN called crisis to find reason pt discharged to [facility] crisis then to C 2. aquacultural worker supervisor stated pt is dangerous to herself and has attempted to hurt herself when alone in the past so pt moved to C 2 for safety reasons.
[2024-03-29 17:30] LABS: Fentanyl, Urine Negative (Negative)
--- NOTE | 2024-03-29 18:08 | EDRN ---
ED PCT Mary said pt refusing to change into paper scrubs.
[2024-03-29 22:17] VITALS: BP 142/86
[2024-03-30 01:10] LABS: HCG, Urine Qualitative Screen Negative
[2024-03-30 05:30] VITALS: BP 143/82
== END 2024-03-30 05:40 ==
LOC: EMR 12:39
PROVIDERS: Physician Assistant Medical; EMERGENCY PHYSICIAN Emergency Medicine
DX: F55.2 Abuse of laxatives (principal); R19.7 Diarrhea, unspecified; Z00.01 Encounter for general adult medical examination with abnormal findings; K21.9 Gastro-esophageal reflux disease without esophagitis; F17.200 Nicotine dependence, unspecified, uncomplicated; Z11.52 Encounter for screening for COVID-19
CPT/HCPCS: 99285; 71046; 80053; 80306; 80307; 81003; 81015; 81025; 85025; 87811; 93005

== ENCOUNTER 2024-10-05 11:38 | Emergency (ER) | payer MEDICARE, OTHER, SELFPAY ==
[2024-10-05 11:41] VITALS: BP 136/86
--- NOTE | 2024-10-05 12:47 | ED.GENMED ---
History of Present Illness
General
Chief Complaint: Crisis Evaluation
Source: patient
Exam Limitations: none
Time Seen by Provider: 10/05/24 12:22
Nursing documentation reviewed up to this point in time: agreed with
History of Present Illness
History of Present Illness:
Patient is a 39-year-old female with history of depression, eating disorder presenting to the emergency department under a 302. Patient states that last week after seeing her therapist it was recommended she come to the emergency department for
evaluation as she expressed that she had not been eating or caring for self at home. Patient then states that she refused to come to the ER and barricaded herself in her home. At that time�patient was placed under 302. [employer] were called to the
house although left eventually after believe that she was not home.
Today after speaking with her therapist that she agreed to come to the emergency department.
Patient denies any current suicidal thoughts or plan. However�she does state that occasionally she hopes that she 'just will not wake up'. Patient states she has been taking an excessive amount of laxatives. She states she purges frequently.
Patient denies any recreational drug use.
Patient denies any chest pain, shortness of breath, abdominal pain, or headache. No urinary symptoms
Past History
Past History
ED Past Medical History: Asthma, GERD, Psychiatric (Posttraumatic syndrome, self mutilation, borderline personality, dissociative identity, suicide, depression) and Other (Pseudotumor cerebri)
ED Past Surgical History: Cholecystectomy, Gynecological (Ectopic with removal of tube and ovary November 2008 ), Tonsilectomy and Other (Dental surgery, gastric bypass)
Social History
Tobacco: Smoker
Alcohol: None
Drug: None
Personal: Single
Living: other (long term - behavioral health)
Employment: Not employed
Family History
Family History: Other (n/c); Negative Diabetes, Hypertension, Early CAD or CAD
Review of Systems
Review of Systems
Allergies reviewed?: Yes
All Other Systems: ROS reviewed and negative except as documented in HPI and ROS
Phy Exam
Physical Exam
Physical Exam:
Vitals: Patient's vital signs are stable. Afebrile
General: Patient is in no apparent distress.
Skin: Warm and dry, no rashes or lesions
Head: Normocephalic, atraumatic
Eyes: Sclera nonicteric. EOMs intact. No nystagmus.
Throat: Protecting airway
Neck: Normal ROM, no cervical spine tenderness, no meningismus
Cardiac: Regular rate and rhythm, no murmurs.
Pulm: Lungs clear bilaterally.
Abdomen: Abdomen soft and nontender.
Extremities: No evidence of cyanosis or edema
Neuro: AAOx3. Grossly intact.
Psychiatric: Flat affect. Not responding to internal stimuli on exam. Cooperative with exam.
Course
Orders/Labs/Results
Orders:
Orders
10/05/24 11:40
1:1 Observation - Suicide/ Violent Behavior As Directed
Crisis Consult Urgent
Reason for Consult: +SI
10/05/24 12:48
Electrocardiogram (*1) Urgent
Reason for Study: Fatigue / Weakness
EKG- Treatment ONCE
10/05/24 13:05
Complete Blood Count/With Diff Urgent
Comprehensive Metabolic Panel Urgent
Drug Screen, Urine [Urine Drug Abuse Screen] Urgent
Date Specimen was Collected: 10/05/24
Time Specimen was Collected: 12:49
Fentanyl, Urine Urgent
HCG, Serum Qualitative Screen Urgent
Comment: ADD ON
Salicylate Urgent
Tylenol [Acetaminophen] Urgent
Urinalysis Reflex To Culture Urgent
Date Specimen was Collected: 10/05/24
Time Specimen was Collected: 12:49
Urine Microscopic Reflex Cult Urgent
Urine Culture Urgent
RIA Source: U
Specimen Description:
Date Specimen was Collected: 10/05/24
Time Specimen was Collected: 12:49
10/05/24 15:42
Add On- LAB Urgent
Tests Added?: serum hcg
10/05/24 20:00
Benztropine [Cogentin] 1 mg PO BID
10/05/24 22:00
Trazodone [Desyrel] 100 mg PO HS
10/06/24 08:00
Fluoxetine HCl [Prozac] 40 mg PO DAILY
Abnormal Lab Results
10/05/24
13:05
Urine Ketones 1+ A
(Negative)
Leukocyte Esterase Rfl 1+ A
(Negative)
Urine Albumin (Reflex) 2+ A
(Neg - Trace)
Salicylates < 1.0 L mg/dl
(2.0-20.0)
Acetaminophen < 10 L ug/ml
(10-30)
U Benzodiazepines Scrn Positive H
(Negative)
U Marijuana (THC) Screen Positive H
(Negative)
10/05/24 13:05
10/05/24 13:05
Vital Signs
Initial and Last Documented VS:
Initial Vital Signs
Temp Pulse Resp BP Pulse Ox
98.3 F 79 16 136/86 100
10/05/24 11:41 10/05/24 11:41 10/05/24 11:41 10/05/24 11:41 10/05/24 11:41
Last Documented Vital Signs
Temp Pulse Resp BP Pulse Ox
98.3 F 70 16 130/86 98
10/05/24 11:41 10/05/24 16:15 10/05/24 16:15 10/05/24 16:15 10/05/24 16:15
MDM/Problems Addressed
Differential Diagnosis Includes:
Not limited to: Suicidal ideations, bulimia, anorexia, acute psychosis, etc.
MDM/Problems Addressed:
Patient is a 39-year-old female presenting under upheld 302 with concerns of worsening depression and not caring for oneself at home. No active SI/HI, or hallucinations. Patient hemodynamically stable. Physical exam as above. Given patient
history of significant eating disorder and excessive laxative use�will obtain basic labs and EKG. Patient is not acutely suicidal or homicidal. However patient will need to go inpatient for psychiatric treatment given 302 and failure to properly
care for herself at home. Dispo pending crisis eval as well as psychiatry consult.
Update: Labs reviewed. No abnormalities on CBC or chemistry. Labs not consistent with amount of laxatives the patient claims to be using. Urine not infected. Crisis currently performing bed search.
Update 3:42 PM: 302 upheld by psychiatry. Dispo pending placement. Patient has been tolerating water and food by mouth.
Update 6 PM: Patient accepted at [facility]. Transport around 11:30 PM tonight. Patient remains in stable condition.
Chronic conditions affecting care:
Bulimia, anxiety, depression, multiple personality disorder
Acute Exacerbation and/or Progression of Chronic Illness:
N/A
*Pulse Oximetry
Patient hypoxic: no
*EKG
Interpreted by ED Provider?: Yes
EKG Intrepretation Date: 10/05/24
Interpretation: abnormal
Comparison EKG: changes noted
Heart Rate: 61
Rate: normal
Rhythm: sinus
[place]: normal axis
Interval: normal QT interval
QRS Pattern: normal QRS
Ischemia: non-specific ST changes
*Nursing Care Attendant Interpretation
Rate: Nursing Care Attendant- N/A
*Critical Care Note
Total Time (30-74mins, 75-104mins- exclusive of procedures): Not Applicable
ED Attending Note
-
Portions of this chart may have been created with voice recognition software.� Occasional wrong word or��sound alike� substitutions may have occurred due to the inherent limitations of voice recognition software.
Discharge Plan
Departure
Patient Disposition: Psych Facility
Date of Disposition: 10/05/24
Time of Disposition: 17:56
Patient with high blood pressure during this ER visit?: Yes
Condition: Good
Covid-19: Not Applicable
Discharge Problem:
Depression, Eating disorder
Instructions: Depression, Adult (DC), BLOOD PRESSURE
Prescriptions:
No Action
clonidine HCl 0.1 mg Tablet
0.1 mg PO HS
benztropine 0.5 mg Tablet
0.5 mg PO BID
trazodone 50 mg Tablet
50 mg PO HS
olanzapine 15 mg Tablet
15 mg PO HS
topiramate 100 mg tablet
100 mg PO BID
fluoxetine [Prozac] 20 mg Capsule
60 mg PO DAILY
hydroxyzine pamoate 25 mg capsule
25 mg PO BID
Vraylar 4.5 mg Capsule
4.5 mg PO DAILY
Referrals:
UNKNOWN,NO INTERVIEW [Family Provider] -
Activity Restrictions/Additional Instructions:
RETURN TO THE EMERGENCY DEPARTMENT ANY THOUGHTS OF HARMING YOURSELF OR OTHERS, VISUAL/AUDITORY HALLUCINATIONS, SIGNS OF SEVERE DEHYDRATION, WORSENING OF CURRENT SYMPTOMS, OR ANY OTHER CONCERNS
- It is important stay well-hydrated and eat balanced diet. Take your medications as prescribed.
Return to the emergency department for any concerns
Interventions
Interventions:
*Risk Screen - Suicide Last Done: 10/05/24 11:39
*General Assessment Last Done: 10/05/24 11:41
*Neglect/Abuse Screening Last Done: 10/05/24 12:30
*ED- Fall Risk Assessment Last Done: 10/05/24 12:30
*ED COVID-19 Vaccine History Last Done: 10/05/24 11:41
ED-Psychological Assessment Last Done: 10/05/24 12:43
Discharge Date and Time
Print Language: HUNGARIAN
[2024-10-05 13:40] LABS: Amphetamines Negative (Negative); Barbiturates Negative (Negative); Benzodiazepines Positive (Negative); Buprenorphine Negative (Negative); Cocaine Negative (Negative); Marijuana Positive (Negative); Methadone Negative (Negative); Methamphetamines Negative (Negative); Opiates Negative (Negative); Phencyclidine Negative (Negative); Tricyclic Antidepressants Negative (Negative)
[2024-10-05 14:07] LABS: % Basophils 1.1 % (0-2); % Eosinophils 1.8 % (0-6); % Immature Granulocytes 0.2 % (0-0.5); % Lymphocytes 39.1 % (20.5-51.1); % Monocytes 5.9 % (1.7-9.3); % Neutrophils 51.9 % (42.2-75.2); Absolute Basophils 0.1 10^3/uL (0-0.2); Absolute Eosinophils 0.1 10^3/uL (0-0.7); Absolute Lymphocytes 2.2 10^3/uL (1.2-3.4); Absolute Monocytes 0.3 10^3/uL (0.1-0.6); Absolute Neutrophils 2.9 10^3/uL (1.4-6.5); Hematocrit 40.4 % (37.0-47.0); Hemoglobin 13.8 g/dL (12.0-16.0); Mean Corp Hgb Conc. 34.2 g/dL (33.0-37.0); Mean Corpuscular Hgb 29.1 pg (27.0-31.0); Mean Corpuscular Volume 85.2 fL (81.0-99.0); Mean Platelet Volume 9.6 fL (7.4-10.4); Nucleated Red Blood Cells % 0 %; Platelet Count 369 10^3/uL (130-400); Red Blood Cell Count 4.74 10^6/uL (4.20-5.40); Red Cell Dist. Width 13.9 % (11.5-14.5); White Blood Cell Count 5.6 10^3/uL (4.8-10.8)
[2024-10-05 14:13] LABS: Fentanyl, Urine Negative (Negative)
[2024-10-05 14:23] LABS: ALT (SGPT) 14 U/L (0-35); AST (SGOT) 19 U/L (14-36); Acetaminophen < 10 ug/ml (10-30); Albumin 4.3 g/dl (3.5-5.0); Alkaline Phosphatase 60 U/L (38-126); Blood Urea Nitrogen 12 mg/dl (7-17); Calcium 9.9 mg/dl (8.4-10.2); Carbon Dioxide 25 mmol/L (22-30); Chloride 106 mmol/L (98-107); Glucose 90 mg/dl (70-99); Potassium 3.6 mmol/L (3.5-5.1); Salicylate < 1.0 mg/dl (2.0-20.0); Sodium 140 mmol/L (135-145); Total Bilirubin 0.5 mg/dl (0.2-1.3); Total Protein 7.4 g/dl (6.3-8.2); eGFR > 60.00
[2024-10-05 14:40] LABS: Urine Albumin 2+ (Neg - Trace); Urine Bilirubin Negative (Negative); Urine Character Cloudy (Clear); Urine Color Yellow; Urine Glucose Negative (Negative); Urine Ketone 1+ (Negative); Urine Leukocyte 1+ (Negative); Urine Nitrite Negative (Negative); Urine Occult Blood Negative (Negative); Urine Specific Gravity 1.025 (<1.030); Urine Urobilinogen 1+ (Neg - 1+)
[2024-10-05 15:14] LABS: Urine Amorphous Seen; Urine Squamous Cell >30 /LPF (Few)
--- NOTE | 2024-10-05 15:42 | W.PN.UPDATE ---
Update Note
Progress Note Update
Pt seen for 302 exam, reviewed with Crisis staff. Pt known to Crisis, has been followed at [facility]. Pt reported has superficial self-cutting of forearm, went outside looking for glass to cut self. Pt stating she is 'tired' 'can't do this anymore',
expressing hopelessness. On interview, pt lying on side making limited eye contact, with lower half of face covered, talking low/mumbling into blanket. Pt states her therapist wants her to get inpatient treatment. Pt states she does not want to go
to a [facility] or [facility]. Reviewed with Crisis staff re: pt's extensive history, multiple admissions, tendency to sabotage plans for treatment, lability. Pt reportedly awaiting [place] specialized Eating d/o [place].
Imp: Unspecified Depressive d/o with suicidal ideation
Rec: [id number] upheld; Crisis staff pursuing inpatient placement
Will follow
[2024-10-05 16:15] VITALS: BP 130/86
[2024-10-05 16:18] LABS: HCG, Serum Qualitative Screen Negative
[2024-10-05] MEDS: COGENTIN 1 MG PO (20:15)
[2024-10-05] MEDS: DESYREL 100 MG PO (22:10)
[2024-10-06 03:00] VITALS: BP 123/89
== END 2024-10-06 03:00 ==
LOC: EMR 11:38
PROVIDERS: Physician Assistant; EMERGENCY PHYSICIAN Student in an Organized Health Care Education/Training Program; OTHER PHYSICIAN Psychiatry & Neurology Psychiatry
DX: F32.A Depression, unspecified (principal); R03.0 Elevated blood-pressure reading, without diagnosis of hypertension; F44.81 Dissociative identity disorder; F50.9 Eating disorder, unspecified; Z68.35 Body mass index [BMI] 35.0-35.9, adult; K21.9 Gastro-esophageal reflux disease without esophagitis; F41.9 Anxiety disorder, unspecified; J45.909 Unspecified asthma, uncomplicated; F50.20 Bulimia nervosa, unspecified; F43.10 Post-traumatic stress disorder, unspecified; G93.2 Benign intracranial hypertension; R56.9 Unspecified convulsions; R01.1 Cardiac murmur, unspecified; F17.200 Nicotine dependence, unspecified, uncomplicated; Z91.51 Personal history of suicidal behavior; Z90.49 Acquired absence of other specified parts of digestive tract; Z98.84 Bariatric surgery status; Z88.6 Allergy status to analgesic agent; Z91.040 Latex allergy status; Z88.5 Allergy status to narcotic agent; Z88.0 Allergy status to penicillin; Z88.8 Allergy status to other drugs, medicaments and biological substances; Z91.018 Allergy to other foods
CPT/HCPCS: 99284; 80053; 80143; 80179; 80306; 80307; 81003; 81015; 84703; 85025; 87086; 93005